=== PATIENT | male | born 1990 | race Caucasian/White ===

== ENCOUNTER 2020-10-28 18:23 | Emergency (ER) | payer MEDICAID ==
[2020-10-28] MEDS ORDERED: Ketorolac 30 MG/ML SDV IM ONE (19:34)
--- NOTE | 2020-10-28 19:39 | EDM.PDOC ---
ED HPI GENERAL MEDICAL PROBLEM - General Chief Complaint: ENT Problem Stated Complaint: TOOTHACHE Time Seen by Provider: 10/28/20 19:06 - History of Present Illness INITIAL COMMENTS - FREE TEXT/NARRATIVE: History of present illness: [] Just moved here. He has 2 weeks of severe pain in the left upper mandibular tooth area. He has no systemic signs of illness. The pain radiates around the left side of the face but that it superior margin of the left mormon area. Its worse with hot cold there. The patient has no systemic signs of illness. The pain hurt so much he feels like he might pass out. Review of systems: As per history of present illness and below otherwise all systems reviewed and negative. Past medical history: As per history of present illness and as reviewed below otherwise noncontributory. Surgical history: As per history of present illness and as reviewed below otherwise noncontributory. Social history: No reported history of drug or alcohol abuse. Family history: As per history of present illness and as reviewed below otherwise noncontributory. Physical exam: Constitutional - well developed, well-nourished and in no acute distress HEENT -patient has significant periodontal disease in the upper mandibular left side of his mouth. He does not have any obvious deep cavities. He has deep cavities and atrophy and necrosis of multiple other teeth in other parts of his mouth. He has no trismus or psilocin. Normocephalic, no evidence of trauma - external nose and mouth normal - no mass in neck and no JVD - mucosae moist EYES - full EOM, PERRL, no icterus - no evidence of inflammation, injection, or drainage Respiratory - no respiratory distress, equal bilateral expansion, lungs clear to auscultation and no abnormal lung sounds Cardiovascular - Regular Rhythm with S1 and S2 appreciated and no murmur, gallop or rub. Musculoskeletal no gross deformity of long bones or joints - no tenderness, swelling or edema Neurologic - Alert and oriented times four - CN II-XII grossly intact - motor sensory and coordination symmetrically normal Psychiatric - appropriate mood and affect with normal thought content Hematologic - No petechiae or purpura - mucosa appropriate color and sclera not pale - normal nail bed color and refill Integument - no rash or evidence of trauma - normal turgor Diagnostics: [] Therapeutics: [] Impression: [] Plan: [] Definitive disposition and diagnosis as appropriate pending reevaluation and review of above. Left Upper Tooth/Teeth Pain Score (Numeric/FACES): 10 - Related Data Allergies Allergy/AdvReac Type Severity Reaction Status Date / Time No Known Allergies Allergy Verified 10/28/20 19:25 Home Meds: Home Meds Acetaminophen/Codeine [Tylenol with Codeine No.3 300MG/30MG] 2 tab PO Q4H PRN #20 tab 10/28/20 [Rx] Ibuprofen [Advil] 200 mg PO Q6H PRN 10/28/20 [History] clindamycin HCL [Cleocin] 300 mg PO Q8H #30 cap 10/28/20 [Rx] ED ROS GENERAL - Review of Systems Review Of Systems: Comprehensive ROS is negative, except as noted in HPI. ED EXAM, GENERAL - Physical Exam Exam: See Below Free Text/Narrative:: My exam as in the HPI Course - Vital Signs Last Recorded V/S: Last Vital Signs Temp 36.0 C L 10/28/20 19:29 Pulse 83 10/28/20 19:29 Resp 18 10/28/20 19:29 BP 145/85 H 10/28/20 19:29 Pulse Ox 100 10/28/20 19:29 - Orders/Labs/Meds Orders: Active Orders 24 hr Category Date Time Status Ketorolac [Toradol] Med 10/28/20 19:34 Once 30 mg IM ONETIME ONE Departure - Departure Time of Disposition: 19:39 Disposition: Home, Self-Care 01 Condition: Good Clinical Impression: Dentalgia, Periodontal disease - Discharge Information Referrals: PCP,Not In Area [Primary Care Provider] - Additional Instructions: Call and see a dentist Return if you have trouble opening her mouth swallowing or breathing. [facility] - Primary Care [address] [place] [address] [id number] [address] [address] The following information is given to patients seen in the emergency department who are being discharged to home. This information is to outline your options for follow-up care. We provide all patients seen in our emergency department with a follow-up referral. The need for follow-up, as well as the timing and circumstances, are variable depending upon the specifics of your emergency department visit. If you don't have a primary care physician on staff, we will provide you with a referral. We always advise you to contact your personal physician following an emergency department visit to inform them of the circumstance of the visit and for follow-up with them and/or the need for any referrals to a consulting specialist. The emergency department will also refer you to a specialist when appropriate. This referral assures that you have the opportunity for follow-up care with a sp ecialist. All of these measure are taken in an effort to provide you with optimal care, which includes your follow-up. Under all circumstances we always encourage you to contact your private physicia n who remains a resource for coordinating your care. When calling for follow-up care, please make the office aware that this follow-up is from your recent emergency room visit. If for any reason you are refused follow-up, please contact the [facility] Emergency Department at and asked to speak to the emergency department charge nurse. Sepsis Event Note (ED) - Evaluation Sepsis Screening Result: No Definite Risk - Focused Exam Vital Signs: Vital Signs Temp Pulse Resp BP Pulse Ox 10/28/20 19:29 36.0 C L 83 18 145/85 H 100 - My Orders Last 24 Hours: My Active Orders 10/28/20 19:34 Ketorolac [Toradol] 30 mg IM ONETIME ONE - Assessment/Plan Last 24 Hours: My Active Orders 10/28/20 19:34 Ketorolac [Toradol] 30 mg IM ONETIME ONE
== END 2020-10-28 19:48 | disposition home or self-care (01) ==
LOC: MW.ED 18:23
DX: K05.6 Periodontal disease, unspecified (principal); K02.9 Dental caries, unspecified
CPT/HCPCS: 96372; 99282; J1885; 99283

== ENCOUNTER 2020-11-15 22:28 | Emergency (ER) | payer MEDICAID ==
[2020-11-15] MEDS ORDERED: Sodium Chloride 0.9% 2.5 ML Syringe FLUSH PRN (22:43)
[2020-11-15] MEDS ORDERED: Sodium Chloride 0.9% 10 ML Syringe FLUSH PRN (22:43)
--- NOTE | 2020-11-15 22:48 | EDM.PDOC ---
ED HPI GENERAL MEDICAL PROBLEM - General Stated Complaint: CHEST PAIN, LT ARM NUMB Time Seen by Provider: 11/15/20 22:30 - History of Present Illness INITIAL COMMENTS - FREE TEXT/NARRATIVE: History of present illness: She has a tooth ache 2 weeks. He was on antibiotics but he is off them for 5 to 7 days. The patient this afternoon developed chest pain. It was pressure in the center of his chest not associated with diaphoresis. The heaviness was not associated with nausea vomiting shortness of breath. It was associated with radiation and tingling down the left arm. The patient is a smoker but not a diabetic or hypertensive patient. His family history is negative for significant coronary vessel disease. The patient did not notice that his left side of his face does not work well so we do not have the last time seem normal and he is being treated for tooth ache in that area. He does not have any ear pain in that area. [] Review of systems: As per history of present illness and below otherwise all systems reviewed and negative. Past medical history: As per history of present illness and as reviewed below otherwise noncontributory. Surgical history: As per history of present illness and as reviewed below otherwise noncontrib utory. Social history: No reported history of drug or alcohol abuse. Family history: As per history of present illness and as reviewed below otherwise noncontributory. Physical exam: Constitutional - well developed, well-nourished and in no acute distress HEENT -patient is poor and he has multiple caries in the left mandibular area in the molars and premolars. Normocephalic, no evidence of trauma - external nose and mouth normal - no mass in neck and no JVD - mucosae moist EYES - full EOM, PERRL, no icterus - no evidence of inflammation, injection, or drainage Respiratory - no respiratory distress, equal bilateral expansion, lungs clear to auscultation and no abnormal lung sounds Cardiovascular - Regular Rhythm with S1 and S2 appreciated and no murmur, gallop or rub. 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 CN II-XII grossly intact except for what is previously stated-remainder of the motor sensory and coordination symmetrically normal Psychiatric - appropriate mood and affect with normal thought content Hematologic - No petechiae or purpura - mucosa appropriate color and sclera not pale - normal nail bed color and refill Integument - no rash or evidence of trauma - normal turgor Diagnostics: [] Therapeutics: [] Impression: [] Plan: [] Definitive disposition and diagnosis as appropriate pending reevaluation and review of above. chest Pain Score (Numeric/FACES): 4 - Related Data Allergies Allergy/AdvReac Type Severity Reaction Status Date / Time No Known Allergies Allergy Verified 11/15/20 22:53 Home Meds: Home Meds Amoxicillin/Clavulanate K [Augmentin 875-125 MG] 1 tab PO Q12HR #20 tablet 11/16/20 [Rx] Past Medical History - Past Health History Medical/Surgical History: Denies Medical/Surgical History Musculoskeletal History: Reports: Other (See Below) Other Musculoskeletal History: Fx. R wrist - Infectious Disease History Infectious Disease History: Reports: Chicken Pox Social & Family History - Caffeine Use Caffeine Use: Reports: Energy Drinks, Soda ED ROS GENERAL - Review of Systems Review Of Systems: Comprehensive ROS is negative, except as noted in HPI. ED EXAM, GENERAL - Physical Exam Exam: See Below Free Text/Narrative:: My physical exam is in the HPI #1 Interpretation EKG Date: 11/15/20 Time: 22:49 Rhythm: NSR Rate (Beats/Min): 84 Hawkins: Normal P-Wave: Present QRS: Normal ST-T: Normal QT: Normal Comparison: NA - No Prior EKG EKG Interpretation Comments: Interpretation no obvious injury Course - Vital Signs Text/Narrative:: [address] is read as left maxillary sinusitis and otherwise normal the facial muscles are moving well now. I feel very strongly that this is a 7th ne rve palsy even though it spares the eyebrow movement. My plan is to reinstitute antibiotics for the tooth which may or may not be affecting the sinus. I will refer him to neurology. Needs to see a dentist as soon as possible. is filled in the history that the onset of the chest pain was had 9:00 in the arrival to the emergency room was at 10:00. Last Recorded V/S: Last Vital Signs Temp 36.6 C 11/15/20 22:30 Pulse 90 11/15/20 23:35 Resp 17 11/15/20 22:30 BP 140/87 11/15/20 23:35 Pulse Ox 99 11/15/20 23:35 - Orders/Labs/Meds Orders: Active Orders 24 hr Category Date Time Status EKG Documentation Completion [RC] AM Care 11/15/20 22:43 Active Sodium Chloride 0.9% [Saline Flush] Med 11/15/20 22:43 Active 10 ml FLUSH ASDIRECTED PRN Sodium Chloride 0.9% [Saline Flush] Med 11/15/20 22:43 Active 2.5 ml FLUSH ASDIRECTED PRN Saline Lock Insert [OM.PC] Stat Oth 11/15/20 22:43 Ordered Medication Orders Sodium Chloride (Sodium Chloride 0.9% 10 Ml Syringe) 10 ml FLUSH ASDIRECTED PRN PRN Reason: Keep Vein Open Last Admin: 11/15/20 22:53 Dose: 10 ml Documented by: JOE Sodium Chloride (Sodium Chloride 0.9% 2.5 Ml Syringe) 2.5 ml FLUSH ASDIRECTED PRN PRN Reason: Keep Vein Open Last Admin: 11/15/20 22:53 Dose: 2.5 ml Documented by: JOE Labs: Laboratory Tests 11/15/20 11/15/20 11/16/20 Range/Units 22:35 22:35 00:16 WBC 8.17 (4.0-11.0) K/uL RBC 4.36 L (4.50-5.90) M/uL Hgb 13.4 (13.0-17.0) g/dL Hct 39.5 (38.0-50.0) % MCV 90.6 (80.0-98.0) fL MCH 30.7 (27.0-32.0) pg MCHC 33.9 (31.0-37.0) g/dL RDW Std Deviation 42.4 (28.0-62.0) fl RDW Coeff of Jefry 13 (11.0-15.0) % Plt Count 266 (150-400) K/uL MPV 9.00 (7.40-12.00) fL Neut % (Auto) 59.5 (48.0-80.0) % Lymph % (Auto) 28.5 (16.0-40.0) % [place] % (Auto) 10.3 (0.0-15.0) % Eos % (Auto) 1.6 (0.0-7.0) % Baso % (Auto) 0.1 (0.0-1.5) % Neut # (Auto) 4.9 (1.4-5.7) K/uL Lymph # (Auto) 2.3 (0.6-2.4) K/uL [place] # (Auto) 0.8 (0.0-0.8) K/uL Eos # (Auto) 0.1 (0.0-0.7) K/uL Baso # (Auto) 0.0 (0.0-0.1) K/uL Nucleated RBC % 0.0 /100WBC Nucleated RBCs # 0 K/uL Sodium 134 L (136-148) mmol/L Potassium 3.8 (3.5-5.1) mmol/L Chloride 103 (98-107) mmol/L Carbon Dioxide 26.0 (21.0-32.0) mmol/L BUN 20 H (7.0-18.0) mg/dL Creatinine 0.9 (0.8-1.3) mg/dL Est Cr Clr Drug Dosing 130.90 mL/min Estimated GFR (MDRD) > 60.0 ml/min Glucose 102 (74-106) mg/dL Calcium 8.3 L (8.5-10.1) mg/dL Total Bilirubin 0.2 (0.2-1.0) mg/dL AST 20 (15-37) IU/L ALT 32 (14-63) IU/L Alkaline Phosphatase 92 (46-116) U/L Troponin I < 0.050 < 0.050 (0.000-0.056) ng/mL Total Protein 6.8 (6.4-8.2) g/dL Albumin 3.7 (3.4-5.0) g/dL Globulin 3.1 (2.6-4.0) g/dL Albumin/Globulin Ratio 1.2 (0.9-1.6) Meds: Medications Generic Name Dose Route Start Last Admin Trade Name Freq PRN Reason Stop Dose Admin Sodium Chloride 10 ml 11/15/20 22:43 11/15/20 22:53 Sodium Chloride 0.9% 10 Ml Syringe FLUSH 10 ml ASDIRECTED PRN Administration Keep Vein Open Sodium Chloride 2.5 ml 11/15/20 22:43 11/15/20 22:53 Sodium Chloride 0.9% 2.5 Ml Syringe FLUSH 2.5 ml ASDIRECTED PRN Administration Keep Vein Open Discontinued Medications Generic Name Dose Route Start Last Admin Trade Name Freq PRN Reason Stop Dose Admin Hydrocodone Bitart/Acetaminophen 1 tab 11/15/20 23:17 11/15/20 23:28 Acetaminophen/Hydrocodone 325-10 Mg Tab PO 11/15/20 23:18 1 tab ONETIME ONE Administration Aspirin 324 mg 11/15/20 23:16 11/15/20 23:28 Aspirin 81 Mg Tab.Chew PO 11/15/20 23:17 324 mg ONETIME ONE Administration Departure - Departure Time of Disposition: 00:49 Disposition: Home, Self-Care 01 Condition: Good Clinical Impression: Periodontal disease, Cabello's palsy, Left maxillary sinusitis - Discharge Information Prescriptions: Amoxicillin/Clavulanate K [Augmentin 875-125 MG] 1 tab PO Q12HR #20 tablet Instructions: Cabello Palsy, Adult, Sinusitis, Adult, [id number] Referrals: PCP,None [Primary Care Provider] - Additional Instructions: Since this Cabello's palsy is atypical and your eyebrows not involved he should take a full aspirin every day until you follow-up with neurology. Please also quit smoking [facility] [address] [place] [address], [address] [place] [phone] Follow-up with your dentist Kaden Griffin [facility] - cardiology [address] [place] [address] The following information is given to patients seen in the emergency department who are being discharged to home. This information is to outline your options for follow-up care. We provide all patients seen in our emergency department with a follow-up referral. The need for follow-up, as well as the timing and circumstances, are variable depending upon the specifics of your emergency department visit. If you don't have a primary care physician on staff, we will provide you with a referral. We always advise you to contact your personal physician following an emergency department visit to inform them of the circumstance of the visit and for follow-up with them and/or the need for any referrals to a consulting specialist. The emergency department will also refer you to a specialist when appropriate. This referral assures that you have the opportunity for follow-up care with a specialist. All of these measure are taken in an effort to provide you with optimal care, which includes your follow-up. Under all circumstances we always encourage you to contact your private physician who remains a resource for coordinating your care. When calling for follow-up care, please make the office aware that this follow-up is from your recent emergency room visit. If for any reason you are refused follow-up, please contact the [facility] Emergency Department at and asked to speak to the emergency department charge nurse. Sepsis Event Note (ED) - Focused Exam Vital Signs: Vital Signs Temp Pulse Resp BP Pulse Ox 11/15/20 23:35 90 140/87 99 11/15/20 23:20 86 136/72 99 11/15/20 23:05 85 136/88 99 11/15/20 22:50 86 141/72 H 100 11/15/20 22:30 36.6 C 92 17 141/82 H 100 - My Orders Last 24 Hours: My Active Orders 11/15/20 22:43 EKG Documentation Completion [RC] AM Sodium Chloride 0.9% [Saline Flush] 10 ml FLUSH ASDIRECTED PRN Sodium Chloride 0.9% [Saline Flush] 2.5 ml FLUSH ASDIRECTED PRN Saline Lock Insert [OM.PC] Stat - Assessment/Plan Last 24 Hours: My Active Orders 11/15/20 22:43 EKG Documentation Completion [RC] AM Sodium Chloride 0.9% [Saline Flush] 10 ml FLUSH ASDIRECTED PRN Sodium Chloride 0.9% [Saline Flush] 2.5 ml FLUSH ASDIRECTED PRN Saline Lock Insert [OM.PC] Stat
[2020-11-15 23:08] LABS: BLOOD UREA NITROGEN,BUN 20 mg/dL (7.0-18.0); CHLORIDE,CL 103 mmol/L (98-107); GLUCOSE RANDOM 102 mg/dL (74-106); POTASSIUM,K 3.8 mmol/L (3.5-5.1); SODIUM,NA 134 mmol/L (136-148)
--- NOTE | 2020-11-15 23:14 | CT ---
INDICATION: SEVENTH CRANIAL NERVE PALSY CENTRAL TYPE CT HEAD WITHOUT CONTRAST TECHNIQUE: Multiple axial CT images were performed through the head without intravenous contrast administration. COMPARISON: No previous studies are currently available for comparison. FINDINGS: No acute intracranial hemorrhage is identified. No extra-axial collections are evident and there is no mass effect or midline shift. Ventricles are normal in size and configuration. Brain parenchyma appears normal with unremarkable kee-white differentiation. Osseous structures are within normal limits and no fractures are seen. Included portions of the paranasal sinuses show moderate mucosal thickening within the left maxillary sinus suggesting sinusitis. The mastoid air cells are normally aerated. IMPRESSION: 1. No intracranial abnormality identified. 2. Left maxillary sinus mucosal thickening suggesting sinusitis. GLORY GXAIOLA MD [employer] Dictated by Dylan Gaxiola MD @ 11/15/2020 11:13:30 PM Dictated by: Dylan Gaxiola MD @ 11/15/2020 23:14:09 (Electronically Signed)
[2020-11-15] MEDS ORDERED: Aspirin 81 MG Tab.Chew PO ONE (23:16)
[2020-11-15] MEDS ORDERED: Acetaminophen/HYDROcodone 325-10 MG Tab PO ONE (23:17)
--- NOTE | 2020-11-15 23:19 | CR ---
HISTORY: Chest pain COMPARISON: None available FINDINGS: A portable erect AP view of the chest was obtained at 22 56 hours. The lungs are clear. No focal or diffuse infiltrates are present. The heart is normal in size. The mediastinum is normal in appearance. There is mild scoliosis of the thoracic and lumbar spine convex towards the right. IMPRESSION: No active disease seen in the chest. Dictated by Ciro Venegas MD @ Nov 15 2020 11:15PM Signed by Dr. Ciro Venegas @ Nov 15 2020 11:17PM
== END 2020-11-16 01:00 | disposition home or self-care (01) ==
LOC: MW.ED 22:28
DX: G51.0 Bell's palsy (principal); R07.89 Other chest pain; K04.7 Periapical abscess without sinus; J32.0 Chronic maxillary sinusitis; F17.200 Nicotine dependence, unspecified, uncomplicated
CPT/HCPCS: 36415; 70450; 71045; 80053; 84484; 85025; 93005; 99285; A9270; 93010; 99283